=== PATIENT | female | born 1985 | race Two or more races ===

== ENCOUNTER 2020-09-14 12:53 | Emergency (ER) | payer SELFPAY ==
[~2020-09-14] VITALS: Ht 165.1 cm; Wt 131.5 kg
[2020-09-14] MEDS ORDERED: ACETAMINOPHEN 325 MG TAB PO ONE (13:45)
[2020-09-14 14:01] VITALS: BP 101/56
== END 2020-09-14 14:16 | disposition home or self-care (01) ==
LOC: ER 12:53
DX: S43.005A Unspecified dislocation of left shoulder joint, initial encounter (principal); X58.XXXA Exposure to other specified factors, initial encounter; Y93.89 Activity, other specified; Y92.89 Other specified places as the place of occurrence of the external cause; Y99.8 Other external cause status

== ENCOUNTER 2020-10-03 17:47 | Observation (INO) | payer MEDICAID ==
[2020-10-03] MEDS ORDERED: FERR-7 PO (18:18)
[2020-10-03] MEDS ORDERED: PYRI1TAB3 PO (18:18)
[2020-10-03] MEDS ORDERED: PREN-96 PO (18:19)
== END 2020-10-03 20:11 | disposition home or self-care (01) ==
LOC: LDRP 17:47
PROVIDERS: ADMIT Specialist; ATTEND Specialist
DX: O60.03 Preterm labor without delivery, third trimester (principal); O24.419 Gestational diabetes mellitus in pregnancy, unspecified control; Z3A.34 34 weeks gestation of pregnancy
CPT/HCPCS: 59025; 76818; 81002; 82948; 82962; G0378

== ENCOUNTER 2020-10-06 16:12 | Observation (INO) | payer MEDICAID ==
[~2020-10-06 16:12] MED LIST: FERR-7 PO; PREN-96 PO; PYRI1TAB3 PO
== END 2020-10-06 17:35 | disposition home or self-care (01) ==
LOC: LDRP 16:12
PROVIDERS: ADMIT Obstetrics & Gynecology; ATTEND Obstetrics & Gynecology
DX: O24.419 Gestational diabetes mellitus in pregnancy, unspecified control (principal); O62.9 Abnormality of forces of labor, unspecified; Z3A.34 34 weeks gestation of pregnancy; Z79.899 Other long term (current) drug therapy
CPT/HCPCS: 59025; 76818; 81002; 82948; G0378

== ENCOUNTER → 2020-11-01 | Outpatient (CLI) | payer MEDICAID | END | disposition home or self-care (01) | LOC: OP 07:35 | PROVIDERS: ATTEND Specialist | DX: Z34.83 Encounter for supervision of other normal pregnancy, third trimester (principal); Z20.822 Contact with and (suspected) exposure to COVID-19; Z3A.38 38 weeks gestation of pregnancy | CPT/HCPCS: C9803; U0003 ==

== ENCOUNTER 2020-11-03 03:45 | Inpatient (IN) | payer MEDICAID ==
[2020-11-03] VITALS (17 sets, daily range): BP systolic 91–123; BP diastolic 42–74
[~2020-11-03] VITALS: Ht 165.1 cm; Wt 136.5 kg
[2020-11-03] MEDS ORDERED: ceFAZolin 1GM/50ML 50 ML IV ONE ×2 (04:00→08:23)
[2020-11-03] MEDS ORDERED: LACTATED RINGER'S 1,000 ML IV SCH (04:00)
[2020-11-03] MEDS ORDERED: LACTATED RINGER'S 1,000 ML IV ONE (04:00)
[2020-11-03 04:44] LABS: Basophils # (auto) 0 10 ^3/uL (0-0.2); Eosinophils # (auto) 0.2 10 ^3/uL (0-0.8); Hematocrit 37.4 % (36.0-46.0); Lymphocytes # (auto) 1.7 10 ^3/uL (0.4-5.4); Monocytes # (auto) 0.8 10 ^3/uL (0-1.3); Red Blood Cells 4.72 10^6/uL (4.0-5.20)
[2020-11-03 04:46] LABS: Basophils % (auto) 0.4 % (0.0-2.0); Eosinophils % (auto) 1.9 % (0.0-7.0); Hemoglobin 12.4 g/dL (12.2-16.2); Lymphocytes % (auto) 19.2 % (10.0-50.0); Mean Corpuscular Hemoglobin 26.2 pg (28.0-32.0); Mean Corpuscular Volume 79.3 fL (80.0-100.0); Monocytes % (auto) 9.1 % (0.0-12.0); Neutrophils # (auto) 6.3 10 ^3/uL (1.6-8.6); Neutrophils % (auto) 69.4 % (37.0-80.0); Red Cell Distribution Width 15.9 % (11.8-14.3); White Blood Cell 9.1 10^3/uL (4.4-10.8)
[2020-11-03 04:57] LABS: INR 1.03 (0.9-1.15); Partial Thromboplastin Time 30.4 sec (23.0-31.2)
[2020-11-03 05:01] LABS: Albumin 2.4 g/dL (3.4-5.0); Calcium 8.4 mg/dL (8.5-10.1); Potassium 3.8 mmol/L (3.5-5.1)
[2020-11-03 05:04] LABS: Bilirubin, Total 0.6 mg/dL (0.2-1.0); Total Protein 6.3 g/dL (6.4-8.2)
[2020-11-03 05:08] LABS: Urine Bacteria FEW /hpf (None Seen); Urine Blood Negative /uL (Negative); Urine Budding Yeast OCCASIONAL /hpf (None Seen); Urine Specific Gravity 1.008 (1.001-1.035); Urine WBC 29 /hpf (0 - 5)
[2020-11-03 05:14] LABS: Amphetamine Screen, Urine NEGATIVE (NEGATIVE); Barbiturate Scree,Urine NEGATIVE (NEGATIVE); Benzodiazephine Screen, Urine NEGATIVE (NEGATIVE); Cannabinoid Screen, Urine NEGATIVE (NEGATIVE); Cocaine Screen, Urine NEGATIVE (NEGATIVE); Opiate Scree,Urine NEGATIVE (NEGATIVE); Phencyclidine Screen, Urine NEGATIVE (NEGATIVE)
[2020-11-03] MEDS ORDERED: TETRACAINE 1% INJ 2 ML VIAL IJ ONE (07:42)
[2020-11-03] MEDS ORDERED: MORPHINE SULF PF 2 MG/2 ML SYRG ONE (07:44)
[2020-11-03] MEDS ORDERED: fentaNYL CITRATE 100 MCG/2 ML VL ONE (07:45)
[2020-11-03] MEDS ORDERED: SODIUM CITR/CITRIC ACID ORAL SOLN 30 ML PO ONE (09:00)
[2020-11-03] MEDS ORDERED: oxyTOCIN 10 UNIT/ML 10ML VIAL ONE (10:01)
[2020-11-03] MEDS ORDERED: KETOROLAC TROMETH 30 MG/ML 1ML VIAL IV PRN ×2 (10:15)
[2020-11-03] MEDS ORDERED: GUM (CHEWING) 1 GUM CHEW CHEW ONE (10:15)
[2020-11-03] MEDS ORDERED: DexAMETHasone SOD PHOS 10MG/1ML VIAL INJ IV PRN (10:15)
[2020-11-03] MEDS ORDERED: HYDROmorphone HCL 2 MG/ML VL IV PRN ×2 (10:15)
[2020-11-03] MEDS ORDERED: ONDANSETRON HCL 4 MG/2 ML VIAL IV PRN ×2 (10:15)
[2020-11-03] MEDS ORDERED: ACETAMINOPHEN IV 1000 MG/100ML (10MG/ML) IV PRN (10:15)
[2020-11-03] MEDS ORDERED: NALBUPHINE HCL 10 MG/1ml INJECTION SUBCUT ONE (10:15)
[2020-11-03] MEDS ORDERED: NALOXONE HCL 0.4 MG/ML VIAL IV PRN (10:15)
[2020-11-03] MEDS: LACTATED RINGER'S 1,000 ML IV SCH ×2 (12:51→22:08)
[2020-11-03] MEDS ORDERED: ceFAZolin 1GM/50ML 50 ML IV SCH (14:00)
[2020-11-03] MEDS: diphenhdrAMINE HCL 50 MG/1 ML VL IV PRN (16:51)
[2020-11-03] MEDS: ceFAZolin 1GM/50ML 50 ML IV SCH (18:16)
[2020-11-04] VITALS (11 sets, daily range): BP systolic 102–117; BP diastolic 51–70
[2020-11-04] MEDS: ceFAZolin 1GM/50ML 50 ML IV SCH ×2 (01:58→10:07)
[2020-11-04] MEDS: diphenhdrAMINE HCL 50 MG/1 ML VL IV PRN (02:02)
[2020-11-04 06:15] LABS: Eosinophils # (auto) 0.1 10 ^3/uL (0-0.8); Eosinophils % (auto) 0.8 % (0.0-7.0); Hematocrit 35.4 % (36.0-46.0); Neutrophils # (auto) 13.1 10 ^3/uL (1.6-8.6); Red Blood Cells 4.47 10^6/uL (4.0-5.20)
[2020-11-04 06:17] LABS: Basophils # (auto) 0.1 10 ^3/uL (0-0.2); Basophils % (auto) 0.7 % (0.0-2.0); Hemoglobin 11.8 g/dL (12.2-16.2); Lymphocytes % (auto) 6.5 % (10.0-50.0); Mean Corpuscular Hemoglobin 26.4 pg (28.0-32.0); Mean Corpuscular Hgb Conc. 33.4 g/dL (32.0-36.0); Mean Corpuscular Volume 79.1 fL (80.0-100.0); Monocytes # (auto) 1.3 10 ^3/uL (0-1.3); Monocytes % (auto) 8.2 % (0.0-12.0); Neutrophils % (auto) 83.8 % (37.0-80.0); Red Cell Distribution Width 15.9 % (11.8-14.3); White Blood Cell 15.6 10^3/uL (4.4-10.8)
[2020-11-04 07:06] LABS: RPR Non Reactive (Non Reactive)
[2020-11-04] MEDS ORDERED: HYDROcodone-ACET 5/325MG TAB PO PRN (09:00)
[2020-11-04] MEDS ORDERED: SIMETHICONE 80 MG CHEWABLE TABLET PO PRN (09:00)
[2020-11-04] MEDS: IBUPROFEN 800 MG TAB PO PRN ×2 (10:08→19:54)
[2020-11-04] MEDS: DOCUSATE SOD 100 MG CAP PO SCH ×2 (10:08→21:37)
[2020-11-04] MEDS: HYDROcodone-ACET 5/325MG TAB PO PRN (17:18)
[2020-11-05 02:49] VITALS: BP 125/55
[2020-11-05] MEDS: HYDROcodone-ACET 5/325MG TAB PO PRN (05:14)
[2020-11-05 07:00] VITALS: BP 106/69
[2020-11-05] MEDS: IBUPROFEN 800 MG TAB PO PRN ×2 (10:44→20:58)
[2020-11-05] MEDS: DOCUSATE SOD 100 MG CAP PO SCH ×2 (10:44→22:57)
[2020-11-05 11:30] VITALS: BP 104/67
[2020-11-05 14:30] VITALS: BP 96/52
[2020-11-05 19:00] VITALS: BP 117/78
[2020-11-05 23:00] VITALS: BP 117/45
[2020-11-06 03:30] VITALS: BP 121/67
[2020-11-06] MEDS: IBUPROFEN 800 MG TAB PO PRN (06:28)
[2020-11-06 06:42] VITALS: BP 113/63
[2020-11-06] MEDS ORDERED: HYDR-4902 PO ×2 (08:35→08:37)
== END 2020-11-06 09:20 | disposition home or self-care (01) | DRG 540 ==
LOC: LDRP 03:45
PROVIDERS: ADMIT Obstetrics & Gynecology; ATTEND Obstetrics & Gynecology
PROC: 10D00Z1 Extraction of Products of Conception, Low, Open Approach (ICD-10-PCS; principal; 2020-11-03 08:25)
DX: O99.214 Obesity complicating childbirth (principal); E66.01 Morbid (severe) obesity due to excess calories; O24.429 Gestational diabetes mellitus in childbirth, unspecified control; O34.211 Maternal care for low transverse scar from previous cesarean delivery; Z37.0 Single live birth; Z3A.39 39 weeks gestation of pregnancy
CPT/HCPCS: 36415; 59025; 80053; 80307; 81001; 85025; 85610; 85730; 86592; 86850; 86900; 86901; 94760; 94762; 96360; 96361; 96374; G0378; J0131; J0690; J1885; J2590

== ENCOUNTER → 2021-03-30 | Outpatient (CLI) | payer MEDICAID ==
[~2021-03-30] MED LIST changes: +HYDR-4902 PO
[2021-03-30 08:56] LABS: Basophils # (auto) 0 10 ^3/uL (0-0.2); White Blood Cell 5.7 10^3/uL (4.4-10.8)
[2021-03-30 08:57] LABS: Basophils % (auto) 0.8 % (0.0-2.0); Eosinophils # (auto) 0.3 10 ^3/uL (0-0.8); Hematocrit 39.9 % (36.0-46.0); Hemoglobin 12.8 g/dL (12.2-16.2); Lymphocytes # (auto) 1.8 10 ^3/uL (0.4-5.4); Lymphocytes % (auto) 31.8 % (10.0-50.0); Mean Corpuscular Hemoglobin 26.6 pg (28.0-32.0); Mean Corpuscular Hgb Conc. 32.1 g/dL (32.0-36.0); Mean Corpuscular Volume 82.9 fL (80.0-100.0); Monocytes # (auto) 0.6 10 ^3/uL (0-1.3); Monocytes % (auto) 10.8 % (0.0-12.0); Neutrophils % (auto) 51.6 % (37.0-80.0); Nucleated Red Blood Cells % 0.1 %; Red Blood Cells 4.81 10^6/uL (4.0-5.20); Red Cell Distribution Width 14.3 % (11.8-14.3)
[2021-03-30 09:18] LABS: Potassium 4.1 mmol/L (3.5-5.1)
[2021-03-30 09:23] LABS: Albumin 3.7 g/dL (3.4-5.0); BUN/Creatinine Ratio 26.1; Bilirubin, Total 0.5 mg/dL (0.2-1.0)
== END | disposition home or self-care (01) ==
LOC: LAB 08:35
PROVIDERS: ATTEND Nurse Practitioner Family
DX: Z00.00 Encounter for general adult medical examination without abnormal findings (principal); M25.512 Pain in left shoulder; Z86.32 Personal history of gestational diabetes; Z83.3 Family history of diabetes mellitus
CPT/HCPCS: 36415; 80053; 82043; 83036; 85025

== ENCOUNTER 2021-09-27 18:20 | Emergency (ER) | payer MEDICAID | END 2021-09-27 20:30 | disposition left against medical advice (07) | LOC: ER 18:20 | DX: T78.40XA Allergy, unspecified, initial encounter (principal); Z53.21 Procedure and treatment not carried out due to patient leaving prior to being seen by health care provider; X58.XXXA Exposure to other specified factors, initial encounter ==

== ENCOUNTER → 2024-10-16 | Outpatient (CLI) | payer MEDICAID ==
[~2024-10-16] MED LIST changes: +CALC1TAB92 PO; +MULT-1018 OR
[2024-10-16 10:32] LABS: Hematocrit 35.7 % (36.0-46.0); Hemoglobin 11.0 g/dL (12.2-16.2); Mean Corpuscular Hemoglobin 22.0 pg (28.0-32.0); Mean Corpuscular Volume 71.7 fL (80.0-100.0); Nucleated Red Blood Cells % 0.1 %
[2024-10-16 10:46] LABS: Urine Protein, UAD TRACE (Negative)
[2024-10-16 10:55] LABS: INR 1.05 (0.9-1.15); Iron 19.0 ug/dL (50-170); Partial Thromboplastin Time 27.1 SEC (24.5-34.5); Prothrombin Time 11.1 sec (9.3-11.8); Total Iron Binding Capacity 420.0 ug/dL (250-425)
[2024-10-16 10:59] LABS: Alanine Aminotransferase 19 U/L (7-40); Albumin 4.8 g/dL (3.2-4.8); Alkaline Phosphatase 59 U/L (46-116); Anion Gap 7 (5-15); BUN/Creatinine Ratio 22.2 (10.0-20.0); Bilirubin, Total 1.1 mg/dL (0.2-1.0); Blood Urea Nitrogen 20 mg/dL (9-23); Calcium 10.7 mg/dL (8.7-10.4); Carbon Dioxide 29 mmol/L (20-31); Chloride 106 mmol/L (98-107); Glucose 86 mg/dL (74-106); Potassium 4.4 mmol/L (3.5-5.1); Sodium 142 mmol/L (136-145); Total Protein 7.3 g/dL (5.7-8.2)
[2024-10-16 11:14] LABS: Beta HCG, Quantitative 1.0 mIU/mL (1.5-4.2)
[2024-10-16 11:17] LABS: Thyroid Stimulating Hormone 1.13 uIU/mL (0.55-4.78)
== END | disposition home or self-care (01) ==
LOC: LAB 09:39
PROVIDERS: ATTEND Internal Medicine Hematology & Oncology
DX: Z01.812 Encounter for preprocedural laboratory examination (principal); R79.1 Abnormal coagulation profile; D50.9 Iron deficiency anemia, unspecified; N92.0 Excessive and frequent menstruation with regular cycle; Z98.84 Bariatric surgery status
CPT/HCPCS: 36415; 80053; 81001; 82728; 83036; 83540; 83550; 84443; 84702; 85025; 85610; 85730

== ENCOUNTER → 2024-10-22 | Day surgery (SDC) | payer MEDICAID ==
[2024-10-16 10:33] LABS: Hematocrit 34.9 % (36.0-46.0); Hemoglobin 10.9 g/dL (12.2-16.2); Mean Corpuscular Hemoglobin 22.3 pg (28.0-32.0); Mean Corpuscular Volume 71.3 fL (80.0-100.0); Nucleated Red Blood Cells % 0.0 %
[2024-10-16 10:47] LABS: Urine Protein, UAD TRACE (Negative)
[2024-10-16 10:54] LABS: INR 1.03 (0.9-1.15); Partial Thromboplastin Time 26.8 SEC (24.5-34.5); Prothrombin Time 10.9 sec (9.3-11.8)
[2024-10-16 10:55] LABS: Alanine Aminotransferase 18 U/L (7-40); Albumin 4.8 g/dL (3.2-4.8); Alkaline Phosphatase 58 U/L (46-116); Anion Gap 7 (5-15); BUN/Creatinine Ratio 22.0 (10.0-20.0); Blood Urea Nitrogen 20 mg/dL (9-23); Carbon Dioxide 30 mmol/L (20-31); Chloride 106 mmol/L (98-107); Glucose 86 mg/dL (74-106); Potassium 4.4 mmol/L (3.5-5.1); Sodium 143 mmol/L (136-145); Total Protein 7.2 g/dL (5.7-8.2)
[2024-10-16 10:56] LABS: Bilirubin, Total 1.1 mg/dL (0.2-1.0)
[2024-10-16 10:58] LABS: Calcium 10.5 mg/dL (8.7-10.4)
[~2024-10-22] VITALS: Ht 165.1 cm; Wt 80.3 kg
[~2024-10-22] MED LIST changes: +ACETAMINOPHEN IV 1000 MG/100ML (10MG/ML) IV ONE; +BUPIVACAINE 0.25% INJ 50ML VIAL ONE; +BUPIVACAINE HCL 0 ML ONE; +CLINDAMYCIN 600MG IV 50 ML IV ONE; -FERR-7 PO; -HYDR-4902 PO; +HYDROmorphone HCL 2 MG/ML VL/or syr IV PRN; +HYDROmorphone HCL 2 MG/ML VL/or syr ONE; +LIDOCAINE 2% (LOCAL ANESTH.) PF 5ml SDV ONE; +LIDOCAINE W/ EPINEPHRINE 1% 20ML VIAL ONE; +METOCLOPRAMIDE HCL 5MG/ml INJ 2ml VIAL IV ONE; +METOCLOPRAMIDE HCL 5MG/ml INJ 2ml VIAL ONE; +MIDAZOLAM HCL 2MG/2ML 2ml VIAL (1mg/ml) ONE; +ONDANSETRON HCL 4 MG/2 ML VIAL IV ONE; +ONDANSETRON HCL 4 MG/2 ML VIAL ONE; -PREN-96 PO; +PROPOFOL 10 MG/ML 20 ML IV ONE; -PYRI1TAB3 PO; +ROCURONIUM 10MG/ML 10ML VIAL IV ONE; +SUGAMMADEX 200mg/2ml Vial (100MG/ML) IV ONE; +ceFAZolin 2 GM/D5W50ml 50 ML IV ONE; +fentaNYL CITRATE 100 MCG/2 ML VL ONE
--- NOTE | 2024-10-22 09:05 | DVHOP2 ---
Operative Report - 2 Report Details Date: 10/22/24 Preop Diagnosis: Left shoulder instability Postop Diagnosis: Left shoulder instability Surgeon: Maria Del Carmen Mariscal MD Dope Sprayer: Jimenez Tobar Physician Dope Sprayer Anesthesiologist: Bandar Strong CRNA Anesthesia: General, Regional Implant: Arthrex FiberTak x3 Consent: The patient was informed of the risks and benefits of the procedure. These include but are not limited to complications of anesthesia, postoperative infection, incomplete relief of symptoms, recurrence of symptoms, damage to blood vessels, nerves and tendons, deep venous thrombosis, pulmonary embolism and possible need for repeat surgery in the future. Complications: None Estimated Blood Loss: Less than 5 mL Indications for Surgery: The patient is a 39-year-old female with recurrent shoulder dislocations. Nonoperative and operative management options were discussed. Surgery in the form of left shoulder arthroscopy with anterior labral repair, capsulorrhaphy, possible remplissage procedure was discussed with her. Benefits, risks and treatment alternatives were discussed. Specific complications of the surgery such as neurovascular injury, infection, arthrofibrosis, loss of limb or life were discussed. Expected outcomes including recurrent dislocations, need for further surgery such as bone graft and others were discussed with her. She d ecided to proceed with the surgical option. Name of Procedure Performed Left shoulder arthroscopy, capsulorrhaphy, anterior labral repair, superior capsular shift Procedure Details Procedure Details: The patient was identified in the preoperative holding area and the surgical site was marked. The consent was verified. The patient was brought into the operating room and placed supine on the operating table. General anesthesia was administered. The patient was now flipped into the lateral position. The beanbag was deflated. Axillary roll was placed. All the bony prominences were appropriately padded. The extremity was prepped and draped in the usual sterile manner. A timeout was called out to confirm the identity of the patient, the nature of surgery, the site of surgery, the availability of implants and x-rays and allergies to medications. The shoulder was examined under anesthesia and was found to be unstable. Anterior instability was noted with near complete dislocation with anterior drawer. No engagement was noted. Sulcus sign was 1+. A standard posterior portal established. A 30 degree scope was inserted. A standard anterosuperior portal was established using a spinal needle. A probe was inserted and the findings were as follows 1. Positive drive-through sign 2. Flattening of the labrum with scar tissue, poor quality tissue, deficient labrum 3. Intact superior and posterior labrum 4. Intact biceps tendon 5. Intact rotator cuff tendon 6. Medium Hill-Sachs lesion, non engaging A plastic cannula was inserted in the anterior superior portal. Next, the plastic cannula was inserted into the anteroinferior portal. There was capsular laxity noted as well. I decided to proceed with the labral repair and capsulorrhaphy. A drill guide was inserted through the anteroinferior portal at the 6:30 position. The hole for the anchor was drilled. Next, a FiberTak all suture anchor was inserted. A suture lasso was now inserted through the anteroinferior portal. This was passed through the capsule and the inferior labrum. The knotless mechanism was used for tightening of the capsule. Capsulorraphy with superior shift was performed. Excellent fixation was noted. This was repeated for 2 more anchors sequentially up to the subscapularis tendon. The inferior glenohumeral ligament and middle glenohumeral ligament were also included in the repair due to generalized laxity. Bumper effect was noted. Capsular shift was also done as part of this procedu re. Drive-through sign was completely eliminated. Initially, the plan was to do a remplissage procedure given the recurrent disl ocations and significant laxity and the near complete dislocation with clinical exam. However after the anterior capsular shift, excellent centralization of the humeral head was noted. The Hill-Sachs lesion was completely posterior and obscured by the infraspinatus tendon. This was considered to be acceptable. Multiple views were obtained. The scope was in the anterior portal as well as a posterior portal for this step to evaluate the Hill-Sachs lesion. Also 70 degree scope was used throughout the procedure and this was changed to 30 degree scope for thorough visualization. Irrigation was given and the skin portals were closed with 3-0 nylon. Steri- Strips and sterile dressing was applied. The arm was placed in a shoulder immobilizer in internal rotation. Plan: To keep the arm in the immobilizer for six weeks due to significant laxity. We will start physical therapy after six weeks. Condition Good Disposition Home MARIA DEL CARMEN MARISCAL MD Oct 22, 2024 09:05
[2024-10-22 09:33] VITALS: PULSE 128; RESP 24; TEMP 97.8; O2SAT 94
[2024-10-22 09:43] VITALS: PULSE 123; RESP 19; O2SAT 100
[2024-10-22 09:48] VITALS: O2SAT 100
[2024-10-22 09:57] VITALS: O2SAT 100
[2024-10-22 10:03] VITALS: O2SAT 100
[2024-10-22 10:43] VITALS: BP 110/69; PULSE 100; RESP 15; O2SAT 96
== END | disposition home or self-care (01) ==
LOC: SUR 06:12
PROVIDERS: ATTEND Orthopaedic Surgery Sports Medicine
DX: M25.312 Other instability, left shoulder (principal); M25.812 Other specified joint disorders, left shoulder; M25.212 Flail joint, left shoulder; Z79.899 Other long term (current) drug therapy; Z98.84 Bariatric surgery status; Z98.890 Other specified postprocedural states
CPT/HCPCS: 29806; 36415; 80053; 81001; 84702; 85025; 85610; 85730; C1713; J0169; J0690; J1100; J1171; J2003; J2250; J2405; J2704; J2765; J3010; J3490; A4565